=== PATIENT | female | born 1980 | race Caucasian/White ===

== ENCOUNTER 2018-09-05 06:10 | Day surgery (SDC) | payer OTHER ==
[2018-09-05] MEDS ORDERED: DESFLURANE 15 MIN (07:00)
[2018-09-05] MEDS ORDERED: PHENYLephrine (100 MCG/ML) 5ML SYG (07:00)
[2018-09-05] MEDS ORDERED: DEXAMETHASONE 4 MG/ML 5 ML INJ (07:00)
[2018-09-05] MEDS ORDERED: ROCURONIUM 50 MG INJ (07:21)
[2018-09-05] MEDS ORDERED: ONDANSETRON 4 MG INJ (07:21)
[2018-09-05] MEDS ORDERED: PROPOFOL 40 ML (07:21)
[2018-09-05] MEDS ORDERED: MIDAZOLAM 1 MG/ML 2 ML INJ (07:21)
[2018-09-05] MEDS ORDERED: LIDOCAINE 2% (SDV) 5 ML INJ (07:21)
[2018-09-05] MEDS ORDERED: CEFAZOLIN 1 GM INJ (07:21)
[2018-09-05] MEDS ORDERED: FENTAnyl 50 MCG/ML VIAL (07:21)
[2018-09-05] MEDS ORDERED: FAMOTIDINE 20 MG INJ (07:21)
[2018-09-05] MEDS ORDERED: ALBUTEROL 0.083% (NEB) 2.5 MG/3 ML AMP HHN (07:30)
[2018-09-05] MEDS ORDERED: FENTAnyl 50 MCG/ML VIAL IV (07:30)
[2018-09-05] MEDS ORDERED: ONDANSETRON 4 MG INJ IV (07:30)
[2018-09-05] MEDS ORDERED: LABETALOL HCL 20MG INJ IV (07:30)
[2018-09-05] MEDS ORDERED: HYDROmorphONE 1 MG/5 ML IV SYRINGE IV ×2 (07:30)
[2018-09-05] MEDS ORDERED: OXYCODONE/ACETAMINOPHEN (5/325) TAB PO ×2 (07:30)
[2018-09-05] MEDS ORDERED: DIPHENHYDRAMINE 50 MG INJ IV (07:30)
[2018-09-05] MEDS ORDERED: MEPERIDINE 25 MG INJ IV (07:30)
[2018-09-05] MEDS ORDERED: morphine (1 MG/ML) 10ML SYRINGE IV ×2 (07:30)
[2018-09-05] MEDS ORDERED: SUGAMMADEX SODIUM 200 MG/2 ML VIAL IV (08:07)
[2018-09-05] MEDS: BUPIVACAINE 0.5%/EPI (SDV) 30 ML INJ INJ (08:09)
[2018-09-05] MEDS ORDERED: BUPIVACAINE 0.5%/EPI (SDV) 30 ML INJ (08:11)
[2018-09-05] MEDS: FENTAnyl 50 MCG/ML VIAL IV (08:36)
== END 2018-09-05 15:58 | disposition home or self-care (01) ==
LOC: SDS 06:10
DX: Z30.2 Encounter for sterilization (principal)
CPT/HCPCS: 58670; 86900; 86901